=== PATIENT | female | born 1980 | race Hispanic/Latino ===

== ENCOUNTER 2017-03-29 08:10 | Day surgery (SDC) | payer BC ==
[2017-03-25 09:14] VITALS: BMI 23.0
[2017-03-29 08:32] VITALS: TEMP 98.2
[2017-03-29] MEDS ORDERED: Propofol 10 mg/ml Inj (20 ML) ONE (09:06)
[2017-03-29] MEDS ORDERED: Sodium Chloride 0.9% 1,000 ML IV SCH (09:45)
[2017-03-29 10:35] VITALS: BP 100/60; PULSE 68; RESP 18; O2SAT 99
== END 2017-03-29 11:00 | disposition home or self-care (01) ==
LOC: ENDO 08:10
PROVIDERS: ATTEND Internal Medicine Gastroenterology
DX: K21.0 Gastro-esophageal reflux disease with esophagitis (principal); K29.80 Duodenitis without bleeding; K25.9 Gastric ulcer, unspecified as acute or chronic, without hemorrhage or perforation; K29.50 Unspecified chronic gastritis without bleeding; K44.9 Diaphragmatic hernia without obstruction or gangrene
CPT/HCPCS: 43239; 88305; 88342; J2704; J7040 ×2